=== PATIENT | male | born 2000 | race Two or more races ===

== ENCOUNTER 2020-12-30 18:00 | Emergency (ER) | payer SELFPAY ==
[~2020-12-30] VITALS: Ht 172.7 cm; Wt 73.1 kg
--- NOTE | 2020-12-30 18:32 | NUR ---
PT WALKED BACK FROM TRIAGE WITH CHIEF COMPLAINT OF RIGHT SHOULDER PAIN SINCE JOSE F. PT REPORTS INTERMITENT TINGLING IN RIGHT HAND.
[2020-12-30 18:34] VITALS: BP 143/89
[2020-12-30] MEDS ORDERED: KETOROLAC 30 MG/1 ML IM ONE (19:00)
--- NOTE | 2020-12-30 19:48 | NUR ---
PT REFUSING TORADOL AT THIS TIME, REPORTS PAIN IS MANAGEABLE.
== END 2020-12-30 20:14 | disposition home or self-care (01) ==
LOC: ED 20:12
DX: S43.101A Unspecified dislocation of right acromioclavicular joint, initial encounter (principal); M25.511 Pain in right shoulder; X58.XXXA Exposure to other specified factors, initial encounter; Y93.89 Activity, other specified; Y92.89 Other specified places as the place of occurrence of the external cause; Y99.8 Other external cause status
CPT/HCPCS: 99283

== ENCOUNTER 2021-04-04 19:41 | Emergency (ER) | payer SELFPAY ==
[~2021-04-04] VITALS: Ht 170.2 cm; Wt 74.3 kg
--- NOTE | 2021-04-04 23:09 | NUR ---
REPORT RECEIVED FROM GEETA WOLFF. PT AWAITING CT SCAN.
--- NOTE | 2021-04-05 00:06 | NUR ---
SPOKE WITH RADIOLOGY REGARDING CT READ. CT STAFF REACHING OUT TO RAD TO INVESTIGATE.
--- NOTE | 2021-04-05 00:41 | NUR ---
PT AMBULATORY TO RESTROOM AT THIS TIME. DELAY EXPLAINED TO PT AND S/O. VERBALIZED UNDERSTANDING. DENY NEEDS AT THIS TIME.
--- NOTE | 2021-04-05 00:50 | NUR ---
REPORT TO GEETA SERRANO.
[2021-04-05 01:30] VITALS: BP 129/81
--- NOTE | 2021-04-05 01:46 | NUR ---
F/U AND D/C INSTRUCTIONS WITH PRESCRIPTIONS GIVEN TO PT AND HE V/U. PTS RIGHT ARM PLACED IN SLING AND HE TOLERATED WELL. PT AMBULATED TO DC DESK.
== END 2021-04-05 01:49 | disposition home or self-care (01) ==
LOC: ED 23:00
DX: S06.0X0A Concussion without loss of consciousness, initial encounter (principal); S52.125A Nondisplaced fracture of head of left radius, initial encounter for closed fracture; M54.2 Cervicalgia; F17.210 Nicotine dependence, cigarettes, uncomplicated; W55.12XA Struck by horse, initial encounter; Y93.89 Activity, other specified; Y92.89 Other specified places as the place of occurrence of the external cause; Y99.8 Other external cause status
CPT/HCPCS: 70450; 72125; 99406